=== PATIENT | female | born 1985 | race Two or more races ===

== ENCOUNTER 2023-02-02 05:56 | Emergency (ER) | payer OTHER ==
[2023-02-02 06:10] VITALS: BP 98/67; PULSE 58; RESP 16; TEMP 97.6; BMI 23.3
[2023-02-02] MEDS ORDERED: ACETAMINOPHEN 1000 MG/100 ML BAG IVPB ONE (07:15)
[2023-02-02] MEDS ORDERED: ONDANSETRON 4 MG/2 ML VIAL IVPUSH ONE (07:15)
[2023-02-02] MEDS ORDERED: ACETAMINOPHEN INJECTION 100 ML IVPB ONE (07:18)
[2023-02-02] MEDS ORDERED: ONDANSETRON 4 MG/2 ML VIAL ONE (07:18)
[2023-02-02 07:58] LABS: HEMATOCRIT 34.4 % (32.4-45.2); MCH 26.1 pg (25.7-33.7); MCHC 31.9 g/dl (32.0-36.0); MEAN CELL VOLUME 81.7 fl (80-96); MEAN PLT VOLUME 10.7 fl (7.5-11.1); PLATELET COUNT 256.2 10^3/uL (134-434); RBC 4.21 10^6/uL (3.60-5.2)
[2023-02-02 08:31] LABS: ANISOCYTOSIS 1+; PLATELET ESTIMATE ADEQUATE
[2023-02-02 08:35] LABS: ALBUMIN 4.1 g/dl (3.4-5.0); BILIRUBIN,TOTAL 0.4 mg/dl (0.2-1); CALCIUM 9.1 mg/dl (8.5-10.1); CREATININE 0.8 mg/dl (0.6-1.3); POTASSIUM 3.9 mmol/L (3.5-5.1); TOT PROT 6.3 g/dl (6.4-8.2)
[2023-02-02] MEDS ORDERED: KETOROLAC TROMETHAMINE 30 MG/1 ML VIAL IVPUSH ONE (08:37)
[2023-02-02] MEDS ORDERED: KETOROLAC TROMETHAMINE 30 MG/1 ML VIAL ONE (08:41)
[2023-02-02] MEDS ORDERED: SODIUM CHLORIDE 1,000 ML IV STA (10:58)
== END 2023-02-02 12:20 | disposition home or self-care (01) ==
LOC: FER 05:56
PROC: 3E033NZ Introduction of Analgesics, Hypnotics, Sedatives into Peripheral Vein, Percutaneous Approach (ICD-10-PCS; principal; 2023-02-02)
PROC: 3E0333Z Introduction of Anti-inflammatory into Peripheral Vein, Percutaneous Approach (ICD-10-PCS; 2023-02-02)
PROC: 3E033GC Introduction of Other Therapeutic Substance into Peripheral Vein, Percutaneous Approach (ICD-10-PCS; 2023-02-02)
PROC: 3E0337Z Introduction of Electrolytic and Water Balance Substance into Peripheral Vein, Percutaneous Approach (ICD-10-PCS; 2023-02-02)
DX: M54.6 Pain in thoracic spine (principal); N20.0 Calculus of kidney
CPT/HCPCS: 36415; 71046-TC-FY; 74177-TC; 80053; 81003; 81015; 81025; 85027; 85379; 99285-25; Q9967

== ENCOUNTER 2023-02-03 05:59 | Emergency (ER) | payer OTHER ==
[2023-02-03 06:12] VITALS: BP 105/71; PULSE 69; RESP 18; TEMP 97.9; BMI 23.3
[2023-02-03] MEDS ORDERED: SODIUM CHLORIDE 1,000 ML IV STA (06:17)
[2023-02-03] MEDS ORDERED: ONDANSETRON 4 MG/2 ML VIAL IVPUSH ONE (06:17)
[2023-02-03] MEDS ORDERED: KETOROLAC TROMETHAMINE 30 MG/1 ML VIAL IVPUSH ONE (06:17)
[2023-02-03] MEDS ORDERED: ONDANSETRON 4 MG/2 ML VIAL ONE (06:19)
[2023-02-03] MEDS ORDERED: KETOROLAC TROMETHAMINE 30 MG/1 ML VIAL ONE (06:19)
== END 2023-02-03 07:07 | disposition home or self-care (01) ==
LOC: FER 05:59
PROC: 3E0333Z Introduction of Anti-inflammatory into Peripheral Vein, Percutaneous Approach (ICD-10-PCS; principal; 2023-02-03)
PROC: 3E033GC Introduction of Other Therapeutic Substance into Peripheral Vein, Percutaneous Approach (ICD-10-PCS; 2023-02-03)
PROC: 3E0337Z Introduction of Electrolytic and Water Balance Substance into Peripheral Vein, Percutaneous Approach (ICD-10-PCS; 2023-02-03)
DX: N23 Unspecified renal colic (principal)
CPT/HCPCS: 99284-25

== ENCOUNTER 2023-09-18 15:20 | Emergency (ER) | payer OTHER ==
[2023-09-18 15:38] VITALS: BP 116/61; PULSE 64; RESP 16; TEMP 98; BMI 24.4
== END 2023-09-18 18:55 | disposition home or self-care (01) ==
LOC: FER 15:20
DX: O09.522 Supervision of elderly multigravida, second trimester (principal); O36.8120 Decreased fetal movements, second trimester, not applicable or unspecified; O26.892 Other specified pregnancy related conditions, second trimester; R10.11 Right upper quadrant pain; R11.0 Nausea; R63.0 Anorexia; O99.891 Other specified diseases and conditions complicating pregnancy; M79.89 Other specified soft tissue disorders; Z3A.19 19 weeks gestation of pregnancy
CPT/HCPCS: 76815-TC; 81003; 99284-25